=== PATIENT | male | born 1965 | race Caucasian/White ===

== ENCOUNTER 2021-04-28 10:28 | Emergency (ER) | payer OTHER, SELFPAY ==
[2021-04-28 10:33] VITALS: BP 158/81; PULSE 64; RESP 15; TEMP 36.9; O2SAT 100
--- NOTE | 2021-04-28 10:46 | PC.NURSE ---
Patient walked out of ED without difficulty and in no distress reporting that he is going to go to another facility to get in faster.
== END 2021-04-29 02:41 | disposition left against medical advice (07) ==
LOC: ANHED 10:56
PROVIDERS: Emergency Provider Emergency Medicine; PCP Nurse Practitioner Psychiatric/Mental Health
DX: S61.412A Laceration without foreign body of left hand, initial encounter (principal)
CPT/HCPCS: 99199

== ENCOUNTER 2021-05-27 17:42 | Emergency (ER) | payer OTHER, SELFPAY ==
[2021-05-27 17:52] VITALS: BP 129/80; PULSE 64; RESP 16; TEMP 37.1; O2SAT 99
--- NOTE | 2021-05-27 17:55 | ED.EYEPROB ---
HPI - Eye Problem General Chief complaint: Eye Problems Stated complaint: Rt Eye Pain Time Seen by Provider: 05/27/21 17:55 Source: patient Mode of arrival: ambulatory Limitations: no limitations History of Present Illness HPI Narrative: Rony Jackson is a 55 yo male with PMH with a fib with RVR who comes to the [facility] with R eye pain. He was cutting up a branch had fallen and up with his eye. He flushed his eye but still feels like there is something in his right eye Related Data Home Medications Medication Instructions Recorded Confirmed clonazepam 0.5 mg PO BID PRN 05/27/21 05/27/21 escitalopram oxalate 10 mg PO DAILY 05/27/21 05/27/21 metoprolol tartrate 12.5 mg PO BID 05/27/21 05/27/21 Allergies Allergy/AdvReac Type Severity Reaction Status Date / Time No Known Allergies Allergy Verified 05/27/21 18:02 Review of Systems Review of Systems: CONSTITUTIONAL: Denies fever, chills, sweats. EYES: Denies visual changes, redness, discharge. Right eye irritation and pain thinks that a foreign object is in the right eye ENT: Denies rhinorrhea, congestion, sore throat, otalgia. CARDIOVASCULAR: Denies chest pain, palpitations, edema. RESPIRATORY: Denies dyspnea, wheezing, cough GASTROINTESTINAL: Denies abdominal pain, nausea, vomiting, diarrhea. GENITOURINARY: Denies dysuria, hematuria, abnormal discharge SKIN: Denies rash or itching. NEUROLOGIC: Denies numbness, or focal weakness. PSYCHIATRIC: Denies anxiety or depression. PMFSH Past Medical History Medical History Atrial fibrillation with RVR Chronic anticoagulation Family History Family History Other A-fib High cholesterol Comments At time of signature, I agree with nursing past medical, surgical, social and family history. There is no relevant family history pertinent to the presenting complaint. Exam Narrative: GENERAL: This is a well-nourished, well-developed patient, in mild distress. HEAD: normocephalic, atraumatic. EYES: PERRL. Sclera clear/white. Vision is grossly intact. Feels like a foreign object in eye EARS: External ears . Hearing grossly intact. NOSE: External nose normal without nasal discharge, nares without redness, no rhinorrhea. THROAT: Mucous membranes moist, NECK: Neck supple, non-tender CARDIOVASCULAR: Regular rate and rhythm without murmurs, gallops, or rubs. RESPIRATORY: Clear to auscultation. Breath sounds equal bilaterally. No wheezes, rales, or rhonchi. GASTROINTESTINAL: Abdomen soft, SKIN: warm, intact with no suspicious lesions or rash, good texture and turgor. NEURO: awake, alert, and oriented to person, place and time. There were no obvious focal neurologic abnormalities. Steady gait EXTREMITIES: Normal range of motion. BACK: Nontender without deformity Course Course Emergency Course: Tetracaine and fluorescein stain used with Jordan lamp-found a small corneal abrasion, right lower outer canthus-eye with normal saline started on polymyxin eyedrops Vital Signs Vital signs: Vital Signs Temperature 98.8 F 05/27/21 17:52 Pulse Rate 64 05/27/21 17:52 Respiratory Rate 16 05/27/21 17:52 Blood Pressure 129/80 05/27/21 17:52 Pulse Oximetry 99 05/27/21 17:52 Temperature 98.8 F 05/27/21 17:52 Pulse Rate 64 05/27/21 17:52 Respiratory Rate 16 05/27/21 17:52 Blood Pressure 129/80 05/27/21 17:52 Pulse Oximetry 99 05/27/21 17:52 MDM - Eye Problem Differential Diagnosis Differential diagnosis: Likely corneal abrasion, conjunctivitis, corneal ulcer and other Critical Care Time Critical Care Time Critical Care Time: No Discharge Plan Discharge Clinical Impression: Corneal abrasion Qualifiers: Encounter type: initial encounter Laterality: right Qualified Code(s): S05.01XA - Injury of conjunctiva and corneal abrasion without foreign body, right eye, initial encounte
== END 2021-05-27 18:34 | disposition home or self-care (01) ==
PROVIDERS: Emergency Provider Nurse Practitioner; PCP Nurse Practitioner Psychiatric/Mental Health
DX: S05.01XA Injury of conjunctiva and corneal abrasion without foreign body, right eye, initial encounter (principal); X58.XXXA Exposure to other specified factors, initial encounter; I48.91 Unspecified atrial fibrillation; Z79.01 Long term (current) use of anticoagulants
CPT/HCPCS: 99213; A9270; G0463